=== PATIENT | female | born 1985 | race Caucasian/White ===

== ENCOUNTER 2018-01-29 21:28 | Emergency (ER) | payer OTHER ==
[~2018-01-29] VITALS: Ht 172.7 cm; Wt 86.8 kg
[2018-01-29] MEDS ORDERED: LORazepam 0.5MG TABLET ONE (22:40)
[2018-01-29 22:59] VITALS: BP 132/68
[2018-01-29] MEDS ORDERED: LORazepam 0.5MG TABLET PO ONE (23:00)
[2018-01-29] MEDS ORDERED: LORazepam 1MG TABLET PO ONE (23:00)
== END 2018-01-29 23:01 | disposition home or self-care (01) ==
LOC: ED 22:54
DX: F41.1 Generalized anxiety disorder (principal)
CPT/HCPCS: 93005; 99284